=== PATIENT | female | born 1955 | race Caucasian/White ===

== ENCOUNTER 2017-06-04 05:50 | Day surgery (SDC) | payer BC ==
[~2017-06-04] VITALS: Ht 162.6 cm; Wt 109.0 kg
[~2017-06-04 05:50] MED LIST: ASPI-496 PO; ESZO2TAB22 PO; LEVO50TA PO; MELA3TAB2 PO; PARO30TA3 PO; SUPPLEMENTS PO
[2017-06-04] MEDS ORDERED: LACTATED RINGERS 1,000 ML IV SCH (06:08)
[2017-06-04 06:30] VITALS: BP 113/70
[2017-06-04] MEDS ORDERED: LIDOCAINE 1%, 50ML ONE (06:31)
[2017-06-04] MEDS ORDERED: BUPIVACAINE/PF 0.5% ONE (06:31)
[2017-06-04] MEDS ORDERED: LIDOCAINE-MPF 2% ,5ML ONE (06:35)
[2017-06-04] MEDS ORDERED: PROPOFOL 50 ML ONE (06:36)
[2017-06-04] MEDS ORDERED: FENTANYL PF 100 MCG/2ML ONE ×2 (06:36→08:02)
[2017-06-04] MEDS ORDERED: DEXAMETHASONE 4 MG/ML, 1ML ONE (06:48)
[2017-06-04] MEDS ORDERED: KETOROLAC 30 MG/1 ML ONE (06:48)
[2017-06-04] MEDS ORDERED: ONDANSETRON 2MG/ML, 2ML ONE (06:48)
[2017-06-04] MEDS ORDERED: PROPOFOL 10 MG/ML, 20ML ONE (06:48)
[2017-06-04] MEDS ORDERED: METOCLOPRAMIDE 5 MG/ML, 2ML ONE (06:48)
[2017-06-04] MEDS ORDERED: CEFAZOLIN 1,000 MG ONE (06:48)
[2017-06-04] MEDS ORDERED: HYDROmorphone 1 MG/ML, 1ML IV PRN (07:30)
[2017-06-04] MEDS ORDERED: ACETAMINOPHEN 325 MG TABLET PO PRN (07:30)
[2017-06-04] MEDS ORDERED: PROMETHAZINE 25 MG/ML, 1ML IV PRN (07:30)
[2017-06-04] MEDS ORDERED: OXYcodone 5 MG/5 ML ORAL.SOL UDC PO PRN (07:30)
[2017-06-04] MEDS ORDERED: MEPERIDINE/PF 25MG/0.5ML IVPush PRN (07:30)
[2017-06-04] MEDS ORDERED: LABETALOL 5MG/ML, 20ML IV PRN (07:30)
[2017-06-04] MEDS ORDERED: FENTANYL PF 100 MCG/2ML IV PRN (07:30)
[2017-06-04] MEDS ORDERED: hydrALAzine 20 MG/ML, 1ML IV PRN (07:30)
[2017-06-04] MEDS ORDERED: ONDANSETRON 2MG/ML, 2ML IVPush PRN (07:30)
[2017-06-04] MEDS ORDERED: ALBUTEROL/IPRATROPIUM 2.5MG/0.5MG, 3 ML NPPB PRN (07:30)
[2017-06-04] MEDS ORDERED: MIDAZOLAM 1 MG/ML, 2ML IV PRN (07:30)
[2017-06-04] MEDS ORDERED: DIAZEPAM 5 MG/ML, 2ML IVPush PRN (07:30)
[2017-06-04] MEDS ORDERED: OXYcodone 5 MG/5 ML ORAL.SOL UDC ONE (08:02)
[2017-06-04] MEDS ORDERED: ACETAMINOPHEN 650 MG/20.3 ML UDC ONE (08:02)
== END 2017-06-04 11:00 ==
LOC: OUT 05:50
PROVIDERS: ATTEND Orthopaedic Surgery
DX: G56.02 Carpal tunnel syndrome, left upper limb (principal); M65.842 Other synovitis and tenosynovitis, left hand; E03.9 Hypothyroidism, unspecified; Z88.8 Allergy status to other drugs, medicaments and biological substances
CPT/HCPCS: 25115; 64721; J0690; J1100; J1885; J2405; J2704; J2765; J3010; J3490

== ENCOUNTER 2019-04-05 08:35 | Day surgery (SDC) | payer BC ==
[~2019-04-05] VITALS: Ht 162.6 cm; Wt 108.2 kg
[~2019-04-05 08:35] MED LIST changes: +ASCO100019 PO; +BUPR150T20 PO; +CALC1CAP8 PO; +CHOL40002 PO; +DESV50TA20 PO; +GABA PO; +GLUC-111 PO; +IBUP-1223 PO; +LACT1CAP35 PO; +LEVO15TA7 PO; +LIOT25TA PO; +MAGN100T PO; -MELA3TAB2 PO; +MELA3TAB56 PO; +OMEG1CAP23 PO; +OXYC-302 PO; +PAPA1TAB8 PO; +VITA400C43 PO; +YEAS680T2 PO
[2019-04-05] MEDS ORDERED: LACTATED RINGERS 1,000 ML IV SCH (10:27)
[2019-04-05 10:30] VITALS: BP 118/74
[2019-04-05] MEDS ORDERED: ACETAMINOPHEN 500 MG TABLET ONE ×2 (10:38→14:33)
[2019-04-05] MEDS ORDERED: MIDAZOLAM 1 MG/ML, 2ML ONE ×2 (10:38→14:33)
[2019-04-05] MEDS ORDERED: GABAPENTIN 300 MG CAPSULE ONE ×2 (10:39→14:33)
[2019-04-05] MEDS ORDERED: METOPROLOL 1 MG/ML, 5ML ONE (11:06)
[2019-04-05] MEDS ORDERED: FENTANYL PF 250 MCG/5ML ONE (11:09)
[2019-04-05] MEDS ORDERED: LABETALOL 5MG/ML, 20ML IV PRN ×2 (11:30→13:30)
[2019-04-05] MEDS ORDERED: hydrALAzine 20 MG/ML, 1ML IV PRN ×2 (11:30→13:30)
[2019-04-05] MEDS ORDERED: KETOROLAC 30 MG/1 ML IV PRN ×2 (11:30→13:30)
[2019-04-05] MEDS ORDERED: DIAZEPAM 5 MG/ML, 2ML IVPush PRN ×2 (11:30→13:30)
[2019-04-05] MEDS ORDERED: PROMETHAZINE 25 MG/ML, 1ML IV PRN ×2 (11:30→13:30)
[2019-04-05] MEDS ORDERED: HYDROmorphone 2 MG/ML, 1ML IVPush PRN (11:30)
[2019-04-05] MEDS ORDERED: ALBUTEROL SULFATE 2.5 MG/3 ML NPPB PRN ×2 (11:30→13:30)
[2019-04-05] MEDS ORDERED: MEPERIDINE/PF 25MG/0.5ML IVPush PRN ×2 (11:30→13:30)
[2019-04-05] MEDS ORDERED: OXYcodone 5 MG/5 ML ORAL.SOL UDC PO PRN (11:30)
[2019-04-05] MEDS ORDERED: FENTANYL PF 100 MCG/2ML IV PRN (11:30)
[2019-04-05] MEDS ORDERED: ACETAMINOPHEN 325 MG TABLET PO PRN ×2 (11:30→13:30)
[2019-04-05] MEDS: HYDROmorphone 2 MG/ML, 1ML IVPush PRN ×2 (12:35→13:28)
[2019-04-05] MEDS ORDERED: OXYcodone 5 MG/5 ML ORAL.SOL UDC ONE (13:03)
[2019-04-05] MEDS ORDERED: FENTANYL PF 100 MCG/2ML ONE (13:03)
[2019-04-05] MEDS: FENTANYL PF 100 MCG/2ML IV PRN ×2 (13:05→13:12)
[2019-04-05] MEDS ORDERED: HYDROmorphone 2 MG/ML, 1ML ONE (13:27)
[2019-04-05] MEDS ORDERED: KETOROLAC 30 MG/1 ML ONE (13:38)
[2019-04-05] MEDS ORDERED: ENALAPRILAT 1.25 MG/ML, 2ML ONE (13:38)
[2019-04-05] MEDS ORDERED: CEFAZOLIN 1,000 MG ONE (13:59)
[2019-04-05] MEDS ORDERED: ROCURONIUM 10MG/ML,5ML ONE (13:59)
[2019-04-05] MEDS ORDERED: SUCCINYLCHOLINE 20 MG/ML, 10ML ONE (13:59)
[2019-04-05] MEDS ORDERED: DEXAMETHASONE 4 MG/ML, 1ML ONE (13:59)
[2019-04-05] MEDS ORDERED: PROPOFOL 10 MG/ML, 20ML ONE (13:59)
[2019-04-05] MEDS ORDERED: GLYCOPYRROLATE 0.2MG/1ML, 5ML ONE (13:59)
[2019-04-05] MEDS ORDERED: ONDANSETRON 2MG/ML, 2ML ONE (13:59)
[2019-04-05] MEDS ORDERED: NEOSTIGMINE 1 MG/ML, 10ML ONE (13:59)
== END 2019-04-05 16:15 | disposition home or self-care (01) ==
LOC: OUT 08:35
PROVIDERS: ATTEND Orthopaedic Surgery
DX: M66.861 Spontaneous rupture of other tendons, right lower leg (principal); M76.61 Achilles tendinitis, right leg; E03.9 Hypothyroidism, unspecified; F32.9 Major depressive disorder, single episode, unspecified; G47.30 Sleep apnea, unspecified; F15.90 Other stimulant use, unspecified, uncomplicated; E66.01 Morbid (severe) obesity due to excess calories; Z68.41 Body mass index [BMI] 40.0-44.9, adult; Z85.3 Personal history of malignant neoplasm of breast; Z87.39 Personal history of other diseases of the musculoskeletal system and connective tissue; Z88.8 Allergy status to other drugs, medicaments and biological substances; Z90.12 Acquired absence of left breast and nipple; Z98.890 Other specified postprocedural states; Z72.89 Other problems related to lifestyle; Z87.891 Personal history of nicotine dependence
CPT/HCPCS: 27652; 28119; 64445; 64447; 73630; 93005; C1713; J0330; J0690; J1100; J1170; J1885; J2250; J2405; J2704; J2710; J3010; J7120; 76000